=== PATIENT | male | born 1960 | race Caucasian/White ===

== ENCOUNTER → 2024-06-09 12:58 | Outpatient (REF) | payer BC, SELFPAY ==
[2024-06-09 14:53] LABS: ALT (SGPT) 33 U/L (0-50); AST (SGOT) 40 U/L (17-59); Albumin 4.8 g/dl (3.5-5.0); Alkaline Phosphatase 57 U/L (38-126); Blood Urea Nitrogen 20 mg/dl (9-20); Calcium 9.8 mg/dl (8.4-10.2); Carbon Dioxide 26 mmol/L (22-30); Chloride 102 mmol/L (98-107); Glucose 103 mg/dl (70-99); HDL Cholesterol 71 mg/dl; LDL Cholesterol, Calculated 156 mg/dl; Potassium 4.3 mmol/L (3.5-5.1); Sodium 139 mmol/L (135-145); Total Bilirubin 0.5 mg/dl (0.2-1.3); Total Cholesterol 241 mg/dl (50-199); Total Protein 7.3 g/dl (6.3-8.2); Triglyceride 70 mg/dl (10-149); Very Low Density Lipoprotein 14 mg/dl (0-30); eGFR > 60.00
== END ==
LOC: REG 12:58
PROVIDERS: ATTENDING PHYSICIAN Family Medicine
DX: E78.2 Mixed hyperlipidemia (principal); R73.03 Prediabetes
CPT/HCPCS: 36415; 80053; 80061; 83036

== ENCOUNTER → 2024-06-29 08:53 | Outpatient (REF) | payer BC, SELFPAY | LOC: RCS 08:53 | PROVIDERS: ATTENDING PHYSICIAN Internal Medicine Cardiovascular Disease; FAMILY PHYSICIAN Family Medicine | DX: I35.0 Nonrheumatic aortic (valve) stenosis (principal) | CPT/HCPCS: 93306 ==

== ENCOUNTER 2024-09-02 14:50 | Emergency (ER) | payer BC, SELFPAY ==
[2024-09-02 14:56] VITALS: BP 152/104
[2024-09-02 15:28] LABS: % Basophils 0.7 % (0-2); % Immature Granulocytes 0.2 % (0-0.5); % Lymphocytes 30.7 % (20.5-51.1); % Monocytes 8.9 % (1.7-9.3); % Neutrophils 58.5 % (42.2-75.2); Absolute Basophils 0.1 10^3/uL (0-0.2); Absolute Eosinophils 0.1 10^3/uL (0-0.7); Absolute Lymphocytes 2.6 10^3/uL (1.2-3.4); Absolute Monocytes 0.8 10^3/uL (0.1-0.6); Absolute Neutrophils 4.9 10^3/uL (1.4-6.5); Hematocrit 43.3 % (39.0-52.0); Hemoglobin 15.2 g/dL (13.0-18.0); Mean Corp Hgb Conc. 35.1 g/dL (33.0-37.0); Mean Corpuscular Hgb 31.1 pg (27.0-31.0); Mean Corpuscular Volume 88.7 fL (80.0-94.0); Mean Platelet Volume 9.5 fL (7.4-10.4); Nucleated Red Blood Cells % 0 % (-); Platelet Count 263 10^3/uL (130-400); Red Blood Cell Count 4.88 10^6/uL (4.70-6.10); Red Cell Dist. Width 12.4 % (11.5-14.5); White Blood Cell Count 8.4 10^3/uL (4.8-10.8)
[2024-09-02 15:31] LABS: ALT (SGPT) 38 U/L (0-50); AST (SGOT) 42 U/L (17-59); Alkaline Phosphatase 57 U/L (38-126); Blood Urea Nitrogen 20 mg/dl (9-20); Calcium 9.8 mg/dl (8.4-10.2); Carbon Dioxide 25 mmol/L (22-30); Chloride 102 mmol/L (98-107); Glucose 111 mg/dl (70-99); Potassium 4.1 mmol/L (3.5-5.1); Sodium 141 mmol/L (135-145); Total Bilirubin 0.4 mg/dl (0.2-1.3); Total Protein 7.7 g/dl (6.3-8.2); eGFR > 60.00
[2024-09-02 15:43] LABS: Troponin I < 0.012 ng/ml
--- NOTE | 2024-09-02 16:54 | ED.GENMED ---
History of Present Illness
General
Chief Complaint: Chest Pain
Source: patient
Exam Limitations: none
Time Seen by Provider: 09/02/24 16:29
History of Present Illness
History of Present Illness:
64-year-old male with history of reflux and hiatal hernia presents with chest pain onset this morning. He states he initially felt tight while he is walking on the treadmill and then later on the day he was vacuuming and felt increased tightness in
his chest. He finds himself taking deeper breaths than usual and feels short of breath as well. The pain is not pleuritic. Does not radiate to the back jaw or arm. He has been seen by cardiology recently had an echocardiogram which demonstrated
incidentally a slightly dilated ascending aortic aneurysm. No fevers. No cough. No leg swelling no recent travel. No other
Past History
Past History
ED Past Medical History: Asthma, GERD, HTN, Hypercholesterolemia and Other (Melanoma of both legs)
Social History
Tobacco: Non-smoker
Phy Exam
Physical Exam
Physical Exam:
General: Well-appearing nontoxic male no acute respiratory distress
HEENT: Normocephalic atraumatic
Heart: Regular rate and rhythm no audible murmurs
Lungs: Clear no wheeze
Extremities: No cyanosis or edema
Skin is warm no rash
Abdomen is soft nontender nondistended
Scores
Heart Score for Chest Pain Patients
STEMI patient?: No
History: Slightly or Non-Suspicious
ECG: Normal
Age: >45 - <65 years
Risk Factors: 1 or 2 Risk Factors
Troponin: </= Normal Limit
Heart Score for Chest Pain Patients: 2
Heart Score Risk: 2.5% MACE over next 6 weeks
Course
Orders/Labs/Results
Orders:
Orders
09/02/24 14:51
Electrocardiogram (*1) Urgent
Reason for Study: Chest Pain
EKG- Treatment ONCE
09/02/24 15:07
Complete Blood Count/With Diff Urgent
Comprehensive Metabolic Panel Urgent
Troponin I Urgent
09/02/24 16:52
CT Chest Pe Study Urgent
Comment:
Reason For Exam: chest pain, sob
09/02/24 17:19
Troponin I Urgent
Abnormal Lab Results
09/02/24
15:07
MCH 31.1 H pg
(27.0-31.0)
Absolute Monos (auto) 0.8 H 10^3/uL
(0.1-0.6)
Glucose 111 H mg/dl
(70-99)
09/02/24 15:07
09/02/24 15:07
Vital Signs
Initial and Last Documented VS:
Initial Vital Signs
Temp Pulse Resp BP Pulse Ox
98.4 F 82 16 152/104 99
09/02/24 14:56 09/02/24 14:56 09/02/24 14:56 09/02/24 14:56 09/02/24 14:56
Last Documented Vital Signs
Temp Pulse Resp BP Pulse Ox
98.4 F 86 16 133/83 99
09/02/24 14:56 09/02/24 17:18 09/02/24 14:56 09/02/24 17:18 09/02/24 14:56
MDM/Problems Addressed
Differential Diagnosis Includes:
Chest pain. I reviewed prior echocardiogram which demonstrated 4.4 cm ascending aortic aneurysm. Concern for ACS versus reflux. Will also check PE study secondary to the shortness of breath associated with this.
EKG shows sinus rhythm without ischemic changes. Initial troponin negative. Repeat troponin pending.
*Critical Care Note
Total Time (30-74mins, 75-104mins- exclusive of procedures): Not Applicable
Update Note
Update Note:
Repeat and initial troponins both undetectable. Given the discomfort and shortness of breath and known aortic aneurysm CT PE study was ordered. There is a stable 4.4 cm ascending aortic aneurysm. Dissection or pulmonary embolism noted on CT.
Patient reassured. Resting comfortably upon reassessment. Will have patient follow-up with cardiology through the chest pain hotline. Stable for discharge
ED Attending Note
-
Portions of this chart may have been created with voice recognition software.� Occasional wrong word or��sound alike� substitutions may have occurred due to the inherent limitations of voice recognition software.
Discharge Plan
Departure
Patient Disposition: Home (Routine Discharge)
Date of Disposition: 09/02/24
Time of Disposition: 20:01
Patient with high blood pressure during this ER visit?: No
Discharge Problem:
Chest pain
Instructions: Chest Pain CBC Follow Up
Prescriptions:
No Action
oxycodone 5 mg tablet
5 mg PO Q4H PRN (Reason: pain) Qty: 20 0RF
prednisone 20 mg tablet
20 mg PO BID Qty: 14 0RF
Referrals:
Messi Demarco MD [Family Provider] -
Activity Restrictions/Additional Instructions:
Return here for worsening symptoms. Continue current medications. Follow-up with cardiology otherwise
Interventions
Interventions:
*Risk Screen - Suicide Last Done: 09/02/24 14:56
*General Assessment Last Done: 09/02/24 14:56
*Neglect/Abuse Screening Last Done: 09/02/24 14:56
*ED COVID-19 Vaccine History Last Done: 09/02/24 14:56
ED- Cardiac Assessment Last Done: 09/02/24 17:32
Discharge Date and Time
Print Language: HUNGARIAN
[2024-09-02 17:18] VITALS: BP 133/83
[2024-09-02 17:52] LABS: Troponin I < 0.012 ng/ml
== END 2024-09-02 20:15 | disposition home or self-care (01) ==
LOC: EMR 14:50
PROVIDERS: Emergency Medicine; Physician Assistant; EMERGENCY PHYSICIAN Emergency Medicine; FAMILY PHYSICIAN Family Medicine
DX: R07.89 Other chest pain (principal); K21.9 Gastro-esophageal reflux disease without esophagitis; K44.9 Diaphragmatic hernia without obstruction or gangrene; J45.909 Unspecified asthma, uncomplicated; I10 Essential (primary) hypertension; E78.00 Pure hypercholesterolemia, unspecified; Z85.820 Personal history of malignant melanoma of skin
CPT/HCPCS: 99284; 71275; 80053; 84484; 85025; 93005; Q9967

== ENCOUNTER → 2024-09-21 06:19 | Outpatient (REF) | payer BC, SELFPAY ==
[2024-09-21 07:59] LABS: Albumin 4.1 g/dl (3.5-5.0); Blood Urea Nitrogen 16 mg/dl (9-20); Calcium 9.4 mg/dl (8.4-10.2); Carbon Dioxide 26 mmol/L (22-30); Chloride 107 mmol/L (98-107); Glucose 103 mg/dl (70-99); Phosphorus 5.2 mg/dl (2.5-4.5); Potassium 4.3 mmol/L (3.5-5.1); Sodium 143 mmol/L (135-145); eGFR > 60.00
== END ==
LOC: RAD 06:19
PROVIDERS: ATTENDING PHYSICIAN Internal Medicine Cardiovascular Disease; FAMILY PHYSICIAN Family Medicine
DX: I35.0 Nonrheumatic aortic (valve) stenosis (principal); I71.21 Aneurysm of the ascending aorta, without rupture; Z82.49 Family history of ischemic heart disease and other diseases of the circulatory system
CPT/HCPCS: 93017; 36415; 76770; 80069

== ENCOUNTER → 2025-03-15 12:10 | Outpatient (REF) | payer BC, SELFPAY | LOC: RAD 12:10 | PROVIDERS: ATTENDING PHYSICIAN Internal Medicine Gastroenterology; FAMILY PHYSICIAN Family Medicine | DX: R10.13 Epigastric pain (principal) | CPT/HCPCS: 76700 ==

== ENCOUNTER 2025-04-27 06:26 | Day surgery (SDC) | payer BC, SELFPAY | END 2025-04-27 11:15 | disposition home or self-care (01) | LOC: GI 06:26 | PROVIDERS: ATTENDING PHYSICIAN Internal Medicine Gastroenterology | DX: K29.70 Gastritis, unspecified, without bleeding (principal); K22.89 Other specified disease of esophagus; K21.00 Gastro-esophageal reflux disease with esophagitis, without bleeding; K44.9 Diaphragmatic hernia without obstruction or gangrene; K31.7 Polyp of stomach and duodenum; K31.89 Other diseases of stomach and duodenum; R10.13 Epigastric pain | CPT/HCPCS: 43239; 88305; 88342 ==

== ENCOUNTER → 2025-08-02 10:46 | Outpatient (REF) | payer BC, SELFPAY ==
[2025-08-02 12:51] LABS: ALT (SGPT) 26 U/L (0-50); AST (SGOT) 28 U/L (17-59); Albumin 4.9 g/dl (3.5-5.0); Alkaline Phosphatase 53 U/L (38-126); Blood Urea Nitrogen 16 mg/dl (9-20); Calcium 9.8 mg/dl (8.4-10.2); Carbon Dioxide 26 mmol/L (22-30); Chloride 103 mmol/L (98-107); Glucose 114 mg/dl (70-99); HDL Cholesterol 93 mg/dl; LDL Cholesterol, Calculated 149 mg/dl; Potassium 4.5 mmol/L (3.5-5.1); Sodium 135 mmol/L (135-145); Total Protein 7.9 g/dl (6.3-8.2); Very Low Density Lipoprotein 24 mg/dl (0-30); eGFR > 60.00
[2025-08-02 13:17] LABS: PSA, Total - Screen 2.00 ng/ml (0.0-4.0)
[2025-08-02 13:56] LABS: TSH 2.79 uIU/ml (0.47-4.68)
[2025-08-03 08:11] LABS: Glycohemoglobin (HgbA1c) 6.0 % (4.0-5.6)
== END ==
LOC: REG 10:46
PROVIDERS: ATTENDING PHYSICIAN Physician Assistant Medical
DX: E78.2 Mixed hyperlipidemia (principal); E03.9 Hypothyroidism, unspecified; Z12.5 Encounter for screening for malignant neoplasm of prostate
CPT/HCPCS: 36415; 80053; 80061; 83036; 84439; 84443; G0103